=== PATIENT | female | born 1990 | race African-American/Black ===

== ENCOUNTER 2020-08-28 08:00 | Emergency (ER) | payer MEDICAID ==
[~2020-08-28] VITALS: Ht 170.2 cm; Wt 71.0 kg
[~2020-08-28 08:00] MED LIST: NONE REPORTED
[2020-08-28 08:03] VITALS: BP 121/74
[2020-08-28] MEDS ORDERED: DEXAMETHASONE 4MG/ML 1ML VIAL IM ONE (08:30)
[2020-08-28] MEDS ORDERED: KETOROLAC 60MG/2ML VIAL IM ONE (08:30)
[2020-08-28] MEDS ORDERED: TOPUD MT (08:55)
[2020-08-28] MEDS ORDERED: FLUT9.9S BOTHNSTRLS (08:55)
[2020-08-28] MEDS ORDERED: GUAI-741 MT (08:55)
[2020-08-28] MEDS ORDERED: AMOX-424 MT (08:55)
== END 2020-08-28 09:10 | disposition home or self-care (01) ==
LOC: ER 08:00
DX: J02.9 Acute pharyngitis, unspecified (principal); J45.909 Unspecified asthma, uncomplicated
CPT/HCPCS: 96372; 99284; J1100; J1885